=== PATIENT | female | born 1960 | race Caucasian/White ===

== ENCOUNTER 2024-01-03 13:44 | Outpatient (AMB) | payer MEDICARE, MEDICAID, SELFPAY ==
--- NOTE | 2024-01-03 13:58 | HO.SPINEOV ---
Intake Visit Reasons: bulging and deteriorating disc Intake Note: Ms. Perry is here today c/o low back pain. MRI done [facility]. 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 HPI: This 63-year-old female underwent an L4-5 decompression in 2020 that relieved her leg pain. She states that on the way home they hit a bump and since that time she has pain in the mid lumbar region. She can not sit and any vibration to the spine will create severe pain in that spot. Laying down is the best position followed by walking. However, when she stands in his certain position she develops pain radiating down her right thigh that stops at the knee. The pain will disappear soon as she changes positions. The left leg is unaffected. The following conservative treatment options were tried without success antiinflammatories, tylenol, physical therapy, cortisone shots PMH: MS and fibromyalgia Medications: Tylenol/Motrin p.r.n. Allergies: NKDA Social history: Nonsmoker Physical Exam: On inspection there are no deformities. There is severe pain on palpation over the L3-4 region. Flexion is nonpainful. Extension produces discomfort. Straight leg raise is negative. There are sensory change in the anterior part of the right thigh. Patellar reflex is present bilaterally. No pathological reflexes. Radiological Studies: MRI done at [facility] shows a near complete eccentric disc collapse L3-4 towards the right side that causes severe L3 foraminal stenosis and lumbar degenerative scoliosis. A dynamic lumbar x-ray shows the unilateral collapse of the L3-4 disc space and a lumbar degenerative scoliosis L2-3 L3-4. Impression/Plan: This patient has an interesting clinical presentation. The lumbar radiculopathy can be explained by the severe right L3 foraminal stenosis. I do think that the lumbar degenerative scoliosis caused by the unilateral collapse of the L3-4 disc space is responsible for her back pain although I do not understand that it is so painful on palpation. I would like to get an CT scan of the lumbar spine to have a closer look at the spinous processes before and make a determination if surgery is indicated. I will order a CT scan and I will see the patient in my clinic the same day as the CT scan is done. Thank you for allowing me to participate in your patients care. total time spent was 50 minutes in counseling ,coordination of plan, personal review of imaging, surgical decision making and subsequent plan Gamaliel Art MD, PhD Spine Fellowship Trained Neurosurgeon Director, [facility] Orders: Orders CT lumbar spine wo IV con Today M41.56 - Other secondary scoliosis, lumbar region XR lumbar spine 4V min Today M41.56 - Other secondary scoliosis, lumbar region Coding Level of Care Code New Pt Level 4 (12836) Diagnoses Scoliosis of lumbar region due to degenerative disease of spine in adult M41.56
== END 2024-01-03 14:59 | disposition home or self-care (01) ==
PROVIDERS: PCP Internal Medicine; Visit Provider Neurological Surgery
DX: M41.56 Other secondary scoliosis, lumbar region (principal)
CPT/HCPCS: 99204

== ENCOUNTER 2024-01-03 13:44 | Outpatient (REF) | payer MEDICARE, MEDICAID, SELFPAY | END 2024-01-03 13:45 | disposition home or self-care (01) | LOC: HO.HOSX 13:44 | PROVIDERS: PCP Internal Medicine; Visit Provider Neurological Surgery | DX: M48.061 Spinal stenosis, lumbar region without neurogenic claudication (principal); M54.16 Radiculopathy, lumbar region | CPT/HCPCS: 72110; 99202 ==

== ENCOUNTER 2024-02-23 13:12 | Outpatient (REF) | payer MEDICARE, MEDICAID, SELFPAY ==
--- NOTE | ~2024-02-23 | CT_ITS ---
CLINICAL HISTORY: M41.56 - Other secondary scoliosis, lumbar region CT lumbar spine without contrast Comparison: None Findings: The degenerative changes are asymmetric resulting in scoliosis. There are no acute bony destructive changes or fractures. Facet arthropathy is seen particularly in the lower lumbar spine There is severe chronic degenerative disc disease particularly at the L1-L2 and L3-L4 levels. There is disc space narrowing, endplate erosive changes sclerotic and bony productive changes. There is evidence of cholelithiasis. IMPRESSION: 1. Severe chronic degenerative disc disease L1-L2 and L3-L4 as described. Associated scoliosis. 2. Cholelithiasis. This document has been electronically signed by: Micheal Valente MD on 02/27/2024 12:44:53
== END 2024-02-23 13:13 | disposition home or self-care (01) ==
LOC: HO.CT 13:12
PROVIDERS: PCP Internal Medicine; Visit Provider Neurological Surgery
DX: M41.9 Scoliosis, unspecified (principal)
CPT/HCPCS: 72131

== ENCOUNTER → 2024-02-23 13:19 | Outpatient (BNV) | payer MEDICARE, MEDICAID, SELFPAY | PROVIDERS: PCP Internal Medicine; Visit Provider Radiology Diagnostic Radiology | DX: M51.369 Other intervertebral disc degeneration, lumbar region without mention of lumbar back pain or lower extremity pain (principal); M41.56 Other secondary scoliosis, lumbar region | CPT/HCPCS: 72131 ==

== ENCOUNTER 2024-03-01 14:23 | Outpatient (AMB) | payer MEDICARE, MEDICAID, SELFPAY ==
--- NOTE | 2024-03-01 14:48 | HO.SPINEOV ---
Intake Visit Reasons: same day CT follow up Intake Note: Ms. Perry is here today to F/u on the results of her CT. [employer] Required: No Allergies codeine [CODEINE] Allergy (Unknown, Unverified 10/31/19 16:17) UNKNOWN Penicillins [PENICILLINS] Allergy (Unknown, Unverified 10/31/19 16:17) UNKNOWN risperidone [From RISPERDAL] Adverse Reaction (Severe, Unverified 10/31/19 16:17) Hypertension, Headache Assessment & Plan Assessment & Plan (1) Scoliosis of lumbar region due to degenerative disease of spine in adult: Code(s): M41.56 - Other secondary scoliosis, lumbar region Category: Medical Plan Dear colleague, On 03/01/2024 I saw for follow-up Diane Perry. She underwent a lumbar decompression for neurogenic claudication which was successful. However on the way home she went over a bump and since that time she has severe pain in the upper lumbar region. On exam it is very painful to palpation. I decided to order a CT scan to look for bony fracture of the spinous process. CT scan shows diffuse osteoporosis but no fracture of the spinal process or anywhere else. Therefore I am at a loss what is the cause for her ongoing pain. Obviously, I can not offer her any surgery as I do not know the origin of this pain. I also think that pain management will not be able to offer her a permanent solution. Gamaliel rAt MD, PhD Spine Fellowship Trained Neurosurgeon Director, [facility] Coding Level of Care Code Est Pt Level 3 (00852) Diagnoses Scoliosis of lumbar region due to degenerative disease of spine in adult M41.56
== END 2024-03-01 15:51 | disposition home or self-care (01) ==
PROVIDERS: PCP Internal Medicine; Visit Provider Neurological Surgery
DX: M41.56 Other secondary scoliosis, lumbar region (principal)
CPT/HCPCS: 99213

== ENCOUNTER → 2024-03-01 14:23 | Outpatient (BNVA) | payer MEDICARE, MEDICAID, SELFPAY | PROVIDERS: PCP Internal Medicine; Visit Provider Neurological Surgery | DX: M54.50 Low back pain, unspecified (principal); M81.0 Age-related osteoporosis without current pathological fracture; M41.56 Other secondary scoliosis, lumbar region | CPT/HCPCS: 99212 ==